=== PATIENT | female | born 1995 | race Caucasian/White ===

== ENCOUNTER 2022-08-04 09:18 | Emergency (ER) | payer OTHER ==
[~2022-08-04] VITALS: Ht 160 cm; Wt 62.6 kg
[2022-08-04] MEDS ORDERED: AMOX-CLAV 875-1 EACH PO (12:28)
[2022-08-04] MEDS ORDERED: KETO10TA2 PO (12:28)
== END 2022-08-04 14:28 | disposition home or self-care (01) ==
LOC: ER 09:18
DX: J03.90 Acute tonsillitis, unspecified (principal); Z20.828 Contact with and (suspected) exposure to other viral communicable diseases